=== PATIENT | female | born 1985 | race Caucasian/White ===

== ENCOUNTER 2022-08-31 09:49 | Outpatient (CLI) | payer OTHER, SELFPAY | END 2022-08-31 09:50 | disposition home or self-care (01) | PROVIDERS: PCP Family Medicine; Visit Provider Nurse Practitioner Family | DX: R10.9 Unspecified abdominal pain (principal) | CPT/HCPCS: 80053; 86140 ==

== ENCOUNTER 2022-09-11 07:58 | Outpatient (CLI) | payer OTHER, SELFPAY ==
--- NOTE | 2022-09-11 08:15 | CRLHL7_ITS ---
For Patients: As a result of the Century Cures Act, medical imaging exams and procedure reports are released immediately into your electronic medical record. You may view this report before your referring provider. If you have questions, please contact your health care provider. INDICATION: RUQ pain COMPARISON: none TECHNIQUE: Real time armstrong scale imaging and color Doppler analysis was performed of the right upper quadrant. FINDINGS: The patient`s liver is of normal size and has uniform echogenicity. There is a normal appearance of the hepatic IVC and proximal abdominal aorta. There is no evidence of ascites. The gallbladder is of normal size and there is a non mobile echogenic focus adherent to the nondependent gallbladder wall measuring 6 millimeters. Other smaller similar foci are present. The gallbladder wall measures 2 mm in thickness. The common bile duct is of normal size and measures 3 mm in diameter at the level of the loyd hepatis. The pancreas appears normal. There is no evidence of a stone or hydronephrosis within the right kidney. The right kidney measures 10.2 cm in length. IMPRESSION: Nondependent gallbladder wall hyperechoic adherent focus measuring 6 millimeters compatible with a polyp. Other smaller polyps are suspected elsewhere. Remainder normal. Dictated by Julius Rodarte MD @ 09/11/2022 8:50:13 AM (Electronically Signed)
== END 2022-09-11 07:59 | disposition home or self-care (01) ==
PROVIDERS: PCP Family Medicine; Visit Provider Nurse Practitioner Family
DX: R10.11 Right upper quadrant pain (principal)
CPT/HCPCS: 76705

== ENCOUNTER 2023-03-31 09:12 | Outpatient (CLI) | payer OTHER, SELFPAY | END 2023-03-31 09:13 | disposition home or self-care (01) | LOC: NFLDREF 04-02 11:15 | PROVIDERS: PCP Family Medicine; Referring Provider Family Medicine; Visit Provider Physician Assistant Medical | DX: R79.82 Elevated C-reactive protein (CRP) (principal); Z13.220 Encounter for screening for lipoid disorders; Z13.29 Encounter for screening for other suspected endocrine disorder | CPT/HCPCS: 80053; 80061; 84443; 86140 ==

== ENCOUNTER 2023-04-28 15:33 | Outpatient (CLI) | payer OTHER, SELFPAY ==
[2023-04-28 23:29] LABS: Chlamydia DNA Amplified* NOT DETECTED (No Detected); GC DNA Amplified* NOT DETECTED (No Detected)
== END 2023-04-28 15:34 | disposition home or self-care (01) ==
LOC: LKVREF 15:33
PROVIDERS: PCP Family Medicine; Visit Provider Physician Assistant Medical
DX: Z11.3 Encounter for screening for infections with a predominantly sexual mode of transmission (principal)
CPT/HCPCS: 87491; 87591

== ENCOUNTER 2023-06-25 13:23 | Outpatient (CLI) | payer OTHER, SELFPAY | END 2023-06-25 13:24 | disposition home or self-care (01) | LOC: NFLDREF 06-26 05:35 | PROVIDERS: PCP Family Medicine; Visit Provider Physician Assistant Medical | DX: R10.31 Right lower quadrant pain (principal); M54.50 Low back pain, unspecified | CPT/HCPCS: 87086 ==

== ENCOUNTER 2023-07-08 15:46 | Outpatient (CLI) | payer OTHER, SELFPAY ==
--- NOTE | 2023-07-08 16:00 | US_ITS ---
Patient: CHASE ALMANZA Facility:?[facility] RIS Patient ID:?[id number] Site Patient ID:?[id number]. Site :?1985 Study:?US-Pelvis PELVIS TA & TV-07/08/2023 4:24:51 PM Ordering Physician:?MAME GUILLORY Final Report: INDICATION: Right lower quadrant pain TECHNIQUE: Transabdominal and transvaginal scanning was performed. Transvaginal scanning was performed to optimally evaluate the endometrium and adnexa. Ovarian blood flow was evaluated with color-flow and pulsed Doppler. COMPARISON: None. FINDINGS: The uterus is normal in size. A scar is noted. The uterus measures 6.5 x 4.1 x 5.1 cm. No myometrial mass is evident. The endometrial stripe is normal in thickness at roughly 2 mm. The ovaries are normal in size and contain a number of follicles. The right ovary measures 3.2 x 3.1 x 2.7 cm and left 3.0 x 2.1 x 1.2 cm. Ovarian blood flow is demonstrated with color-flow and pulsed Doppler. No adnexal mass is evident. No free fluid is demonstrated. IMPRESSION: Negative pelvic ultrasound. Dictated by Curtis Vanegas MD @ 07/09/2023 3:09:15 PM Signed by:?Curtis Vanegas MD @07/09/2023 3:09:15 PM (Electronic Signature)
== END 2023-07-08 15:47 | disposition home or self-care (01) ==
LOC: US 15:46
PROVIDERS: PCP Family Medicine; Visit Provider Physician Assistant Medical
DX: R10.31 Right lower quadrant pain (principal)
CPT/HCPCS: 76830; 76856; 93976

== ENCOUNTER 2023-07-11 10:52 | Outpatient (CLI) | payer OTHER, SELFPAY ==
--- NOTE | 2023-07-11 11:00 | US_ITS ---
Patient: CHASE ALMANZA Facility:?[facility] RIS Patient ID:?[id number] Site Patient ID:?[id number]. Site :?1985 Study:?US-Abdomen limited-07/11/2023 11:26:57 AM Ordering Physician:Angelita Phillips Final Report: INDICATION: Cholesterolosis of the gallbladder. COMPARISON: Ultrasound of the right upper quadrant from 09/11/2022. TECHNIQUE: Ultrasound examination of the right upper quadrant was performed. FINDINGS: There is a stable hyperechoic 6 millimeter nonmobile nodule seen along the anterior wall of the gallbladder without shadowing, consistent with a gallbladder polyp. The gallbladder is otherwise normal in appearance with no sign of cholelithiasis or acute cholecystitis. A sonographic Funk sign is not present, with no pain over the gallbladder during ultrasound examination. The common bile duct is normal in caliber at 4 mm. The pancreatic head and body were examined, and these are normal in appearance. The abdominal aorta and visualized portions of the inferior vena cava are normal in appearance. The liver shows no sign of mass or contour abnormality, and there is no sign of ascites. There is normal antegrade color Doppler flow in the main portal vein. The right kidney is unremarkable. IMPRESSION: 1. Stable 6 millimeter polyp arising from the anterior wall of the gallbladder, of no clinical concern. 2. No sign of cholelithiasis or acute cholecystitis. No sign of biliary ductal dilatation. 3. No other abnormality seen in the right upper quadrant. Dictated by Lyle Meyer MD @ 07/11/2023 8:43:17 PM Signed by:?Lyle Meyer MD @07/11/2023 8:43:17 PM (Electronic Signature
== END 2023-07-11 10:53 | disposition home or self-care (01) ==
LOC: US 10:53
PROVIDERS: PCP Physician Assistant Medical; Visit Provider Surgery
DX: K82.4 Cholesterolosis of gallbladder (principal)
CPT/HCPCS: 76705

== ENCOUNTER 2023-12-05 11:07 | Outpatient (CLI) | payer OTHER, SELFPAY ==
[2023-12-09 07:02] LABS: HSV 1 Subtype by PCR Not Detected; HSV 2 Subtype by PCR Not Detected; Herpes Simplex Subtype Source Vesicle
== END 2023-12-05 11:08 | disposition home or self-care (01) ==
PROVIDERS: PCP Physician Assistant Medical; Visit Provider Registered Nurse
DX: N89.8 Other specified noninflammatory disorders of vagina (principal)
CPT/HCPCS: 86592; 87529

== ENCOUNTER 2024-04-28 09:54 | Emergency (ER) | payer OTHER, SELFPAY ==
--- OUTSIDE RECORDS SUMMARY | 2024-04-28 09:56 | XMS_ITS | Clinical Summary ---
Author Organization [facility] Address [address] [address] Phone Care Team Providers Care Office Support Specialist Name Role Phone Elsewhere, Pcp Primary Care Provider Unavailabl e Allergies No known active allergies Encounters Date Type Department Care Team Description 04/28/2024 12:55 AM SENIOR TEST ENGINEER - 04/28/2024 2:54 AM SENIOR TEST ENGINEER Emergency [facility] EMERGENCY DEPARTMENT [address] [place] [address] Sheldon Medina MD Spontaneous (Primary Dx); Vaginal bleeding affecting early Discharge Disposition: Home and/or Self Care 04/28/2024 Travel from Last 3 Months Social History Tobacco Use Types Packs/Day Years Used Date Smoking Tobacco: Never Assessed EH IP Custom IPV Answer Date Recorded Do you feel UNSAFE in any of your personal relationships with your family members or any other acquaintances? No 2024 Comments Yes Sex and Gender Information Value Date Recorded Sex Assigned at Not on file Legal Sex Female 12:53 PM CDT Gender Identity Not on file Sexual Orientation Not on file Obstetrics History Para Term AB IAB SAB Ectopic Molar Multiple Living Live Births 1 Date Outcome GA Total Labor Labor/2nd/3rd Weight Sex Type Anes PTL Mica A1 A5 Name Clin Current Last Filed Vital Signs Vital Sign Reading Time Taken Comments Blood Pressure 106/63 04/28/2024 2:30 AM SENIOR TEST ENGINEER Pulse 89 04/28/2024 2:30 AM SENIOR TEST ENGINEER Temperature 36.8 C (98.2 F) 04/28/2024 1:02 AM SENIOR TEST ENGINEER Respiratory Rate 16 04/28/2024 1:02 AM SENIOR TEST ENGINEER Oxygen Saturation 98% 04/28/2024 2:30 AM SENIOR TEST ENGINEER Inhaled Oxygen Concentration - - Weight 99.8 kg (220 lb) 04/28/2024 1:02 AM SENIOR TEST ENGINEER Height 162.6 cm (5' 4) 04/28/2024 1:02 AM SENIOR TEST ENGINEER Body Mass Index 37.76 04/28/2024 1:02 AM SENIOR TEST ENGINEER Plan of Treatment Health Maintenance Due Date Last Done Comments Cervical Cancer Screening 1985 Last pap w/ HPV Testing 1985 Last pap w/o HPV Testing 1985 Hepatitis B Vaccine (Standin g Order) (1 of 3 - 19+ 3-dose series) 01/28/2004 PERTUSSIS (Standing Order) 01/28/2004 TETANUS (Standing Order) 01/28/2004 COVID-19 Vaccine (2023-2 5 season) 2023 Influenza Vaccine Seasonal (Standing Order) (#1) 2023 HPV Vaccine (Standing Order) Aged Out No longer eligible based on patient's age to complete this topic Pneumococcal/PCV20 Vaccine: Pediatrics (2-5 yrs) and At-Risk Patients (6-49 yrs) (Standing Order) Aged Out No longer eligible b ased on patient's age to complete this topic Procedures Procedure Name Priority Date/Time Associated Diagnosis Comments URINALYSIS, REFLEX TO CULTURE STAT 04/28/2024 2:15 AM SENIOR TEST ENGINEER US OB 1ST TRIMESTER W TRANSVAGINAL STAT 04/28/2024 2:10 AM SENIOR TEST ENGINEER ABORH 2ND DRAW STAT 04/28/2024 1:24 AM SENIOR TEST ENGINEER HCG, SERUM QUANTITATIVE STAT 04/28/2024 1:15 AM SENIOR TEST ENGINEER BASIC METABOLIC PANEL STAT 04/28/2024 1:15 AM SENIOR TEST ENGINEER HEMOGRAM/DIFF STAT 04/28/2024 1:15 AM SENIOR TEST ENGINEER TYPE AND SCREEN STAT 04/28/2024 12:12 AM SENIOR TEST ENGINEER from Last 3 Months Results * (ABNORMAL) URINALYSIS, REFLEX TO CULTURE (04/28/2024 2:15 AM [facility]) UA Color Rosemary(A) Light Yellow, Yellow 04/28/2024 2:36 AM [facility] Urine Appearance Slightly Cloudy(A) Clear 04/28/2024 2:36 AM [facility] Urine Specific [place] 1.020 1.005 - 1.030 04/28/2024 2:36 AM [facility] Urine pH 7.0 5.0 - 8.0 04/28/2024 2:36 AM [facility] Urine Leukocyte Esterase Negative Negative 04/28/2024 2:36 AM [facility] Urine Nitrates Negative Negative 04/28/2024 2:36 AM [facility] Urine Protein 1+(A) Negative 04/28/2024 2:36 AM [facility] Urine Glucose Negative Negative 04/28/2024 2:36 AM [facility] Urine Ketones Negative Negative 04/28/2024 2:36 AM [facility] Urine Urobilinogen Normal Normal 04/28/2024 2:36 AM [facility] Urine Bilirubin Negative Negative 2:36 AM [facility] Urine Blood 3+(A) Negative 04/28/2024 2:36 AM [facility] Urine WBC's 0-5 0 - 5 /HPF 04/28/2024 2:36 AM [facility] Urine RBC's 30-200(A) 0 - 2 /HPF 04/28/2024 2:36 AM [facility] Urine Epithelial Cells Occasional( A) Negative /HPF 04/28/2024 2:36 AM [facility] Urine Bacteria Occasional( A) Negative /HPF 04/28/2024 2:36 AM [facility] Urine URINE SPECIMEN COLLECTION, CLEAN CATCH / Unknown Non-blood collection / Unknown 04/28/2024 2:15 AM [facility] 04/28/2024 2:17 AM SENIOR TEST ENGINEER us Sheldon Melissa Tony Sparks MD EC URINE ORDER MAMADOU Final Result [facility] [address] [place] [address], [facility] [phone] * US OB 1ST TRIMESTER W TRANSVAGINAL (04/28/2024 2:10 AM SENIOR TEST ENGINEER) Anatomical Region Laterality Modality Ultrasound 04/28/2024 1:29 AM SENIOR TEST ENGINEER Narrative 04/28/2024 2:30 AM SENIOR TEST ENGINEER EXAM: US OB 1ST TRIMESTER W TRANSVAGINAL LOCATION: [facility] DATE: 04/28/2024 INDICATION: Vaginal bleeding in early (approximately 10 weeks gestational age). COMPARISON: None. TECHNIQUE: Transabdominal scans were performed. Endovaginal ultrasound was performed to better visualize the embryo. FINDINGS: UTERUS: Uterus measures 9.7 x 5.9 x 5.8 cm. Heterogeneous thickened endometrium. Scattered areas of fluid within the endometrium. No pole or yolk sac seen. RIGHT OVARY: Right ovary measures 3.4 x 2.7 x 1.3 cm. Probable right corpus luteal cyst measuring 2.1 x 1.3 x 2.1 cm. No evidence for right ovarian torsion. LEFT OVARY: Left ovary measures 2.5 x 2.2 x 1.3 cm. No evidence for left ovarian torsion. No pelvic free fluid. IMPRESSION: No intrauterine seen. Heterogeneous thickened endometrium containing areas of fluid. Clinical correlation with quantitative hCG recommended. Probable right corpus luteal cyst. Bilateral ovaries contain flow without evidence for torsion. Electronically signed by: Alejandro Roca MD 04/28/2024 2:30 AM SENIOR TEST ENGINEER Procedure Note Alejandro Roca MD - 04/28/2024 EXAM: US OB 1ST TRIMESTER W TRANSVAGINAL LOCATION: [facility] DATE: 04/28/2024 INDICATION: Vaginal bleeding in early (approximately 10 weeks gestational age). COMPARISON: None. TECHNIQUE: Transabdominal scans were performed. Endovaginal ultrasoundwas performed to better visualize the embryo. FINDINGS: UTERUS: Uterus measures 9.7 x 5.9 x 5.8 cm. Heterogeneous thickenedendometrium. Scattered areas of fluid within the endometrium. No pole or yolk sacseen. RIGHT OVARY: Right ovary measures 3.4 x 2.7 x 1.3 cm. Probable rightcorpus luteal cyst measuring 2.1 x 1.3 x 2.1 cm. No evidence for right ovariantorsion. LEFT OVARY: Left ovary measures 2.5 x 2.2 x 1.3 cm. No evidence for leftovarian torsion. No pelvic free fluid. IMPRESSION: No intrauterine seen. Heterogeneous thickened endometriumcontaining areas of fluid. Clinical correlation with quantitative hCG recommended. Probable right corpus luteal cyst. Bilateral ovaries contain flow without evidence for torsion. Electronically signed by: Alejandro Roca MD 04/28/2024 2:30 AM SENIOR TEST ENGINEER Sheldon Sparks MD US ORDERABL ES Final Result * ABORH 2ND DRAW (04/28/2024 1:24 AM SENIOR TEST ENGINEER) RECKG A POSITIVE 04/28/2024 2:23 AM SENIOR TEST ENGINEER [facility] Blood BLOOD SPECIMEN / Unknown Venipuncture / Unknown 04/28/2024 1:24 AM SENIOR TEST ENGINEER 04/28/2024 1:32 AM SENIOR TEST ENGINEER Sheldon Sparks MD BLOOD BANK ORDERABLES Final Result [facility] [address] [phone] * (ABNORMAL) BASIC METABOLIC PANEL (04/28/2024 1:15 AM SENIOR TEST ENGINEER) Sodium 137 135 - 144 mmol/L 04/28/2024 1:53 AM SENIOR TEST ENGINEER [facility] Potassium 3.5 3.4 - 5.1 mmol/L 04/28/2024 1:53 AM SENIOR TEST ENGINEER [facility] Chloride 108(H) 98 - 107 mmol/L 04/28/2024 1:53 AM SENIOR TEST ENGINEER [facility] Carbon Dioxide 22 22 - 30 mmol/L 04/28/2024 1:53 AM SENIOR TEST ENGINEER [facility] Calcium 9.5 8.6 - 10.3 mg/dL 04/28/2024 1:53 AM [facility] Glucose 102(H) 74 - 100 mg/dL 04/28/2024 1:53 AM [facility] Blood Urea nitrogen 12 7 - 17 mg/dL 04/28/2024 1:53 AM [facility] Creatinine 0.76 0.52 - 1.04 mg/dL 04/28/2024 1:53 AM [facility] Anion Gap 7 5 - 15 mmol/L 04/28/2024 1:53 AM [facility] Glomerular Filtration Rate >60 >60 mL/min/1.7 3 m*2 04/28/2024 1:53 AM [facility] Comment:This calculation use s CKD-EPI 2020 equation; it has not been validated in women. Blood BLOOD SPECIMEN / Unknown Venipuncture / Unknown 04/28/2024 1:15 AM SENIOR TEST ENGINEER 04/28/2024 1:32 AM SENIOR TEST ENGINEER us Sheldon Sparks MD EC CHEMISTRY O RDERABLES Final Result Performing Organization Address City/State/[facility] Co de Phone Number [facility] [address] [place] [address] * HEMOGRAM/DIFFERENTIAL (04/28/2024 1:15 AM [facility]) WBC 5.5 4.0 - 11.0 10*3/uL 04/28/2024 1:45 AM [facility] RBC 4.27 3.80 - 5.20 10*6/uL 04/28/2024 1:45 AM [facility] HGB 12.9 12.0 - 16.0 g/dl 04/28/2024 1:45 AM [facility] HCT 38.6 35.0 - 47.0 % 04/28/2024 1:45 AM [facility] MCV 90.4 80 - 98 fL 04/28/2024 1:45 AM [facility] MCH 30.2 27.0 - 34.0 pg 04/28/2024 1:45 AM [facility] MCHC 33.4 32 - 36 g/dl 04/28/2024 1:45 AM [facility] PLT 204 150 - 420 10*3/uL 04/28/2024 1:45 AM [facility] Neutrophils Absolute 3.42 2.10 - 7.50 10*3/uL 04/28/2024 1:45 AM [facility] Lymphocytes Absolute 1.57 0.76 - 4.00 10*3/uL 04/28/2024 1:45 AM [facility] Monocytes Absolute 0.41 0.00 - 0.90 10*3/uL 04/28/2024 1:45 AM [facility] Eosinophils Absolute 0.09 0.04 - 0.54 10*3/uL 04/28/2024 1:45 AM [facility] Basophils Absolute 0.02 0.00 - 0.20 10*3/uL 04/28/2024 1:45 AM [facility] RDW-SD 43.4 36.5 - 46.3 fL 04/28/2024 1:45 AM [facility] RDW-CV 13.2 11.6 - 14.4 % 04/28/2024 1:45 AM [facility] Immature Granulocytes Absolute 0.01 0.00 - 0.10 10*3/uL 04/28/2024 1:45 AM [facility] Nucleated RBCs Absolute 0.00 0.00 - 0.00 10*3/uL 04/28/2024 1:45 AM [facility] Blood BLOOD SPECIMEN / Unknown Venipuncture / Unknown 04/28/2024 1:15 AM [facility] 04/28/2024 1:31 AM [facility] Sheldon Sparks MD EC HEMATOLOGY ORDERABLES Final Result [facility] [address] [phone] * (ABNORMAL) HCG, SERUM QUANTITATIVE (04/28/2024 1:15 AM SENIOR TEST ENGINEER) hCG, Serum Quantitative 8,370(H) <=25 mIU/mL 04/28/2024 2:12 AM [facility] Blood BLOOD SPECIMEN / Unknown Venipuncture / Unknown 04/28/2024 1:15 AM SENIOR TEST ENGINEER 04/28/2024 1:32 AM SENIOR TEST ENGINEER [facility] - 04/28/2024 2:12 AM SENIOR TEST ENGINEER Reference Ranges for Females: 0-1 weeks: 5-50 mIU/mL 1-2 weeks: 50-500 mIU/mL 2-3 weeks: 100-5,000 mIU/mL 3-4 weeks: 500-10,000 mIU/mL 4-5 weeks: 1,000-50,000 mIU/mL 5-6 weeks: 10,000-200,000 mIU/mL 6-8 weeks: 15,000-200,000 mIU/mL 2-3 months: 10,000-100,000 mIU/mL Specimens with biotin concentrations up to 13 ng/mL demonstrated a less than or equal to 10% change in results. Serum biotin concentrations >13 ng/mL may falsely decrease HCG results. us Sheldon Sparks MD EC CHEMISTRY O RDERABLES Final Result [facility] [address] [place], [place] [id number] [place] [address] * TYPE AND SCREEN (04/28/2024 12:12 AM SENIOR TEST ENGINEER) Antibody Screen NEGATIVE 04/28/2024 2:29 AM SENIOR TEST ENGINEER [facility] ABORH Type A POSITIVE 04/28/2024 2:29 AM [facility] Blood Bank Record New 04/28/2024 2:29 AM [facility] Comment:04/28/2024 Blood BLOOD SPECIMEN / Unknown Venipuncture / Unknown 04/28/2024 12:12 AM SENIOR TEST ENGINEER 04/28/2024 1:31 AM SENIOR TEST ENGINEER Sheldon Sparks MD EC BLOOD BANK ORDERABLES Final Result [facility] [address] [place] [address], [facility] [phone] from Last 3 Months Insurance [employer] Care Teams Office Support Specialist Relationship Specialty Start Date End Date Elsewhere, Pcp PCP - General 04/28/24
--- OUTSIDE RECORDS SUMMARY | 2024-04-28 09:56 | XMS_ITS | Encounter Summary ---
Author Organization [facility] Address [address] [address] Phone Care Team Providers Care Irrigator Valve Pipe Name Role Phone Elsewhere, Pcp Primary Care Provider Unavailabl e Encounter Details Date Type Department Care Team (Latest Contact Info) Description 04/28/2024 Travel Social History Tobacco Use Types Packs/Day Years [...] on file Sexual Orientation Not on file documented as of this encounter Functional Status * Patient's Vision Adequate to Safely Complete Daily Activities Answer Date of Assessment Author Yes 04/28/2024 1:05 AM Arminda Green RN * Patient's Memory Adequate to Safely Complete Daily Activities Answer Date of Assessment Author Yes 04/28/2024 1:05 AM Arminda Green RN documented as of this encounter Mental Status * Patient's Judgment Adequate to Safely Complete Daily Activities Answer Entry Date Author Yes 04/28/2024 1:05 AM Arminda Green RN documented in this encounter Plan of Treatment Not on file documented as of this encounter Visit Diagnoses Not on filedocumented in this encounter Care Teams Irrigator Valve Pipe Relationship Specialty Start Date End Date Elsewhere, Pcp PCP - General 04/28/24 documented as of this encounter
--- OUTSIDE RECORDS SUMMARY | 2024-04-28 09:56 | XMS_ITS | Encounter Summary ---
Author Organization [facility] Address [address] [address] Phone Care Team Providers Care Finishing Range Operator Name Role Phone Elsewhere, Pcp Primary Care Provider Unavailabl e Reason for Visit * Reason Comments Abdominal Pain Vaginal Bleed; Encounter Details Date Type Department Care Team (Late st Contact Info) Description 04/28/2024 12:55 AM JUNIOR ARCHITECT - 04/28/2024 2:54 AM JUNIOR ARCHITECT Emergency [facility] [address] [place] [phone] Sheldon Medina MD [address] [place], [place] [id number] Spontaneous (Primary Dx); Vaginal bleeding affecting early Discharge Disposition: Home and/or Self Care Social History Tobacco Use Types Packs/Day Years [...] on file documented as of this encounter Last Filed Vital Signs Vital Sign Reading Time Taken Comments Blood Pressure 106/63 04/28/2024 2:30 AM JUNIOR ARCHITECT Pulse 89 04/28/2024 2:30 AM JUNIOR ARCHITECT Temperature 36.8 C (98.2 F) 04/28/2024 1:02 AM JUNIOR ARCHITECT Respiratory Rate 16 04/28/2024 1:02 AM JUNIOR ARCHITECT Oxygen Saturation 98% 04/28/2024 2:30 AM JUNIOR ARCHITECT Inhaled Oxygen Concentration - - Weight 99.8 kg (220 lb) 04/28/2024 1:02 AM JUNIOR ARCHITECT Height 162.6 cm (5' 4) 04/28/2024 1:02 AM JUNIOR ARCHITECT Body Mass Index 37.76 04/28/2024 1:02 AM JUNIOR ARCHITECT documented in this encounter Functional Status * Patient's Vision Adequate to Safely Complete Daily Activities Answer Date of Assessment Author Yes 04/28/2024 1:05 AM JUNIOR ARCHITECT Arminda York RN * Patient's Memory Adequate to Safely Complete Daily Activities Answer Date of Assessment Author Yes 04/28/2024 1:05 AM JUNIOR ARCHITECT Arminda York RN documented as of this encounter Mental Status * Patient's Judgment Adequate to Safely Complete Daily Activities Answer Entry Date Author Yes 04/28/2024 1:05 AM JUNIOR ARCHITECT Arminda York RN documented in this encounter Discharge Instructions * Discharge Instructions* Sheldon Medina MD - 04/28/2024 2:33 AM JUNIOR ARCHITECT At this time it does appear you are having a miscarriage. The ultrasound shows no evidence of in the uterus but there are likely some products of conception that have not yet passed. Pleasesee attached instructions for further information on miscarriages and what to expect. Miscarriages are unfortunately quite common and most women go on to have normal healthy pregnancies in the future. You may expect further abdominal cramping and bleeding over the next few days. Call your Stores Despatch Hand provider first thing in the morning to arrange close follow-up within 2 days for recheck including repeat hormone testing and possible repeat imaging. You may take tylenol and ibuprofen as needed for pain control for abdominal pain or cramping. Return to the emergency department immediately if severe worsening bleeding especially if feeling lightheaded or short of breath, or severe worsening abdominal cramping, or any other acute concerns. OR ARCHITECT OR ARCHITECT * Attachments The following attachments cannot be sent through Care Everywhere. * Miscarriage, Spontaneous (Completed) (Spanish) documented in this encounter Discharge Disposition Disposition Code Departure Means Destination Comment s Home and/or Self Snf documented in this encounter ED Notes * Sheldon Medina MD - 04/28/2024 1:07 AM CST Patient: Lucinda Rey Means of Arrival: Car Chief Complaint: Abdominal Pain and Vaginal Bleed; History of Present Illness: HPI 39-year-old woman who is generally healthy presents for evaluation of vaginal spotting/bleeding as well as lower abdominal cramping rating to her back. She is currently approximately 10 weeks with last menstrual period on 02/19/2024 (putting her at 9 weeks 6 days). She is G2, P1. She notesscant brown discharge starting 2 days ago that then progressed to more bright red spotting today that worsened slightly tonight but without significant tissue or clots, but now with new lower abdominal cramping that is bilateral and does not lateralize more to the right or left, extending to her back that started over the last several hours and is worsening. Has not yet taken any medications inclu ding Tylenol for pain. She has not yet established with this , her BACK END DEVELOPER is at [facility] and she was due to have an ultrasound later this morning. No lightheadedness or shortness ofbreath. Review of Systems Please see HPI above for pertinent positives and negatives. No Known Allergies Prior to Admission Medication List No Medications Reported Past Medical History: No significant medical history Past Surgical History: No pertinent surgical history Family History: No pertinent family history Social History: Lives independently at home with family ( and toddler) Exam: Initial Vitals Most Recent Vitals Temp: 98.2 ??F (36.8 ??C) (04/28/24101) Temp: 98.2 ??F (36.8 ??C) (04/28/24101) Pulse: 97 (04/28/24101) Pulse: 89 (04/28/24 0230) Resp: 16 (04/28/24101) Resp: 16 (04/28/24101) BP: 113/80 (04/28/24101) BP: 106/63 (04/28/24 0230) SpO2: 99 % (04/28/24101) SpO2: 98 % (04/28/24229) Weight: 99.8 kg (220 lb) (04/28/24101) Physical Exam: Physical Exam Gen: Lying in bed, alert, nontoxic, no distress but appears uncomfortable HEENT: Cephalic and atraumatic, mucous membranes moist, conjunctiva clear CV: Rate and rhythm, appears warm and well-perfused Pulm: Normal respiratory effort, no audible wheeze or stridor Abd: Soft, nontender, nondistended Pelvic: Deferred Skin: No rash or other lesions MSK: No gross fomites or swelling in extremity Neuro: Alert and oriented x 4, no focal deficits Lab Results: Results for orders placed or performed during the hospital encounter of 04/28/24 URINALYSIS, REFLEX TO CULTURE Collection Time: 04/28/24 2:15 AM Specimen: Urine CVMS Result Value Ref Range UA Color Rosemary (A) Light Yellow, Yellow Urine Appearance Slightly Cloudy (A) Clear Urine Specific [place] 1.020 1.005 - 1.030 Urine pH 7.0 5.0 - 8.0 Urine Leukocyte Esterase Negative Negative Urine Nitrates Negative Negative Urine Protein 1+ (A) Negative Urine Glucose Negative Negative Urine Ketones Negative Negative Urine Urobilinogen Normal Normal Urine Bilirubin Negative Negative Urine Blood 3+ (A) Negative Urine WBC's 0-5 0 - 5 /HPF Urine RBC's 30-200 (A) 0 - 2 /HPF Urine Epithelial Cells Occasional (A) Negative /HPF Urine Bacteria Occasional (A) Negative /HPF ABORH 2ND DRAW Collection Time: 04/28/24 1:24 AM Result Value Ref Range RECKG A POSITIVE BASIC METABOLIC PANEL Collection Time: 04/28/24 1:15 AM Result Value Ref Range Sodium 137 135 - 144 mmol/L Potassium 3.5 3.4 - 5.1 mmol/L Chloride 108 (H) 98 - 107 mmol/L Carbon Dioxide 22 22 - 30 mmol/L Calcium 9.5 8.6 - 10.3 mg/dL Glucose 102 (H) 74 - 100 mg/dL Blood Urea nitrogen 12 7 - 17 mg/dL Creatinine 0.76 0.52 - 1.04 mg/dL Anion Gap 7 5 - 15 mmol/L Glomerular Filtration Rate >60 >60 mL/min/1.73 m*2 HEMOGRAM/DIFFERENTIAL Collection Time: 04/28/24 1:15 AM Result Value Ref Range WBC 5.5 4.0 - 11.0 10*3/uL RBC 4.27 3.80 - 5.20 10*6/uL HGB 12.9 12.0 - 16.0 g/dl HCT 38.6 35.0 - 47.0 % MCV 90.4 80 - 98 fL MCH 30.2 27.0 - 34.0 pg MCHC 33.4 32 - 36 g/dl PLT 204 150 - 420 10*3/uL Neutrophils Absolute 3.42 2.10 - 7.50 10*3/uL Lymphocytes Absolute 1.57 0.76 - 4.00 10*3/uL Monocytes Absolute 0.41 0.00 - 0.90 10*3/uL Eosinophils Absolute 0.09 0.04 - 0.54 10*3/uL Basophils Absolute 0.02 0.00 - 0.20 10*3/uL RDW-SD 43.4 36.5 - 46.3 fL RDW-CV 13.2 11.6 - 14.4 % Immature Granulocytes Absolute 0.01 0.00 - 0.10 10*3/uL Nucleated RBCs Absolute 0.00 0.00 - 0.00 10*3/uL HCG, SERUM QUANTITATIVE Collection Time: 04/28/24 1:15 AM Result Value Ref Range hCG, Serum Quantitative 8,370 (H) <=25 mIU/mL TYPE AND SCREEN Collection Time: 04/28/24 12:12 AM Result Value Ref Range Antibody Screen NEGATIVE ABORH Type A POSITIVE Blood Bank Record New Imaging Results: Imaging Results US OB 1ST TRIMESTER W TRANSVAGINAL (Final result) Result time 04/28/24 02:30:11 Final result by Alejandro Roca MD (04/28/24 02:30:11) Narrative: EXAM: US OB 1ST TRIMESTER W TRANSVAGINAL LOCATION: [facility] DATE: 04/28/2024 INDICATION: Vaginal bleeding in [...] by: Alejandro Roca MD 04/28/2024 2:30 AM [facility] [[email or web address]] Emergency Department Course: Medications acetaminophen (Tylenol) tablet 1,000 mg (1,000 mg Oral Given 04/28/24226) Procedures: Procedures Medical Decision Making ED Course as of 04/28/24 0756 FriApr 28, 2024 0151 CBC with normal white count, hemoglobin, and platelets [BW] 0154 BMP unremarkable, normal renal function and electrolytes [BW] 0213 Hcg 8,370 [BW] 0219 39-year-old woman G2, P1 currently at 9w6d gestational age (LMP 02/19/2024) who presents for evaluation of lower abdominal cramping and vaginal spotting/bleeding. She noted some brown discharge 2 days ago, then progressed to more significant spotting after urinating and with wiping yesterday and now new lower abdominal bilateral cramping extending the low back that started in the evening andworsens. She was due to have her initial OB intake with ultrasound this morning at [facility]. First trimester ultrasound pending but on my initial review, probable empty gestational sac in the uterus, no obvious ectopic foci with formal read by radiology to follow. Concern for spontaneous , less likely ectopic or threatened miscarriage. Patient believes her Rh status is positive but will confirm here and give RhoGAM if indicated. Will give Tylenol for discomfort. Anticipate ultimate discharge with close outpatient BACK END DEVELOPER follow-up [BW] 0226 Rh positive, RhoGAM not indicated [BW] 0230 US OB 1st trimester with transvaginal preliminary result: IMPRESSION: No intrauterine seen. Heterogeneous thickened endometrium containing areas of fluid. Clinical correlation with quantitative hCG recommended. Probable right corpus luteal cyst. Bilateral ovaries contain flow without evidence for torsion. [BW] 0239 Urinalysis notable for blood but no signs of UTI [BW] 0242 Patient updated on results and concern for spontaneous ; she is in agreement with planfor discharge with very close follow-up and strict return precautions. Pain improved on recheck, noworsening bleeding reported. Expectations provided. To call her OB team in the morning to arrange close follow-up and return if severe worsening symptoms [BW] ED Course User Index [BW] Sheldon Medina MD Assessment: (O03.9) Spontaneous (primary encounter diagnosis) (O20.9) Vaginal bleeding affecting early Plan: Discharge Prescriptions None Disposition: ED Disposition ED Disposition Discharge Condition Stable Comment Remember, your care today was on an emergency basis and treatment was not intended to be a substitute for ongoing medical care from your primary care physician. If you came to the Emergency Room for treatment of a wound, sore, or cut of some sort AND/OR if youhave had an injection, an IV treatment or blood drawn, please watch that area carefully for the following signs of infection and seek professional medical treatment immediately: Redness, pain, swelling, or drainage at the site, or you d evelop a fever greater than 100 degrees Fahrenheit measured orally. If you had a lab, xray, or other tests while in the ED please review with your primary doctor. Discharge Instructions At this time it does appear you are having a miscarriage. The ultrasound shows no evidence of in the uterus but there are likely some products of conception that have not yet passed. Please see attached instructions for further information on miscarriages and what to expect. Miscarriages are unfortunately quite common and most women go on to have normal healthy pregnancies in the future. You may expect further abdominal cramping and bleeding over the next few days. Call your Stores Despatch Hand provider first thing in the morning to arrange close follow-up within 2 days for recheck including repeat hormone testing and possible repeat imaging. You may take tylenol and ibuprofen as needed for pain control for abdominal pain or cramping. Return to the emergency department immediately if severe worsening bleeding especially if feeling lightheaded or short of breath, or severe worsening abdominal cramping, or any other acute concerns. Sheldon Medina MD 04/28/24 0759 OR ARCHITECT * Arminda Agarwal RN - 04/28/2024 12:55 AM CST Patient approximately 10 weeks and started developing some spotting and abdominal pain yesterday. Talked with her OB, who scheduled an ultrasound for this morning, but patient reports that the pain is keeping her awake and the spotting has worsened slightly. Has not taken any tylenol for pain. Patient is , denies these symptoms with her first . OBGYN at [facility]. OR ARCHITECT OR ARCHITECT documented in this encounter Plan of Treatment Pending Results Name Type Priority Associated Diagnoses Date /Time CULTURE, URINE Microbiology STAT 04/28/19 2:15 AM JUNIOR ARCHITECT Scheduled Orders Name Type Priority Associated Diagnoses Orde r Schedule CULTURE, URINE Microbiology ANA MARÍA One Time for 1 Occurrences starting 04/28/2024 until 04/28/2024 documented as of this encounter Procedures Procedure Name Priority Date/Time Associated Diagnosis Comments URINALYSIS, REFLEX TO CULTURE STAT 04/28/2024 2:15 AM JUNIOR ARCHITECT US OB 1ST TRIMESTER W TRANSVAGINAL STAT 04/28/2024 2:10 AM JUNIOR ARCHITECT ABORH 2ND DRAW STAT 04/28/2024 1:24 AM JUNIOR ARCHITECT BASIC METABOLIC PANEL STAT 04/28/2024 1:15 AM JUNIOR ARCHITECT HEMOGRAM/DIFF STAT 04/28/2024 1:15 AM JUNIOR ARCHITECT HCG, SERUM QUANTITATIVE STAT 04/28/2024 1:15 AM JUNIOR ARCHITECT TYPE AND SCREEN STAT 04/28/2024 12:12 AM JUNIOR ARCHITECT documented in this encounter Results * (ABNORMAL) URINALYSIS, REFLEX TO CULTURE (04/28/2024 2:15 AM JUNIOR ARCHITECT) UA Color Rosemary(A) Light Yellow, Yellow 04/28/2024 2:[address] [facility] Urine Appearance Slightly Cloudy(A) Clear 04/28/2024 2:[address] [facility] Urine Specific [place] 1.020 1.005 - 1.030 04/28/2024 2:[address] [facility] Urine pH 7.0 5.0 - 8.0 04/28/2024 2:[address] [facility] Urine Leukocyte Esterase Negative Negative 04/28/2024 2:[address] [facility] Urine Nitrates Negative Negative 04/28/2024 2:[address] [facility] Urine Protein 1+(A) Negative 04/28/2024 2:[address] [facility] Urine Glucose Negative Negative 04/28/2024 2:[address] [facility] Urine Ketones Negative Negative 04/28/2024 2:[address] [facility] Urine Urobilinogen Normal Normal 04/28/2024 2:[address] [facility] Urine Bilirubin Negative Negative 2:[address] [facility] Urine Blood 3+(A) Negative 04/28/2024 2:[address] [facility] Urine WBC's 0-5 0 - 5 /HPF 04/28/2024 2:[address] [facility] Urine RBC's 30-200(A) 0 - 2 /HPF 04/28/2024 2:[address] [facility] Urine Epithelial Cells Occasional( A) Negative /HPF 04/28/2024 2:[address] [facility] Urine Bacteria Occasional( A) Negative /HPF 04/28/2024 2:[address] [facility] Urine URINE SPECIMEN COLLECTION, CLEAN CATCH / Unknown Non-blood collection / Unknown 04/28/2024 2:15 AM JUNIOR ARCHITECT 04/28/2024 2:17 AM JUNIOR ARCHITECT Sheldon Sparks MD EC URINE ORDER MAMADOU Final Result [facility] [address] [place] [address], [facility] [phone] * US OB 1ST TRIMESTER W TRANSVAGINAL (04/28/2024 2:10 AM JUNIOR ARCHITECT) Anatomical Region Laterality Modality Ultrasound 04/28/2024 1:29 AM JUNIOR ARCHITECT Narrative 04/28/2024 2:30 AM JUNIOR ARCHITECT EXAM: US OB 1ST TRIMESTER W TRANSVAGINAL LOCATION: [facility] DATE: 04/28/2024 INDICATION: Vaginal bleeding in [...] by: Alejandro Roca MD 04/28/2024 2:30 AM JUNIOR ARCHITECT Procedure Note Alejandro Roca MD - 04/28/2024 EXAM: US OB 1ST TRIMESTER W TRANSVAGINAL LOCATION: [facility] DATE: 04/28/2024 INDICATION: Vaginal bleeding in [...] by: Alejandro Roca MD 04/28/2024 2:30 AM JUNIOR ARCHITECT Sheldon Sparks MD EC US ORDERABL ES Final Result * ABORH 2ND DRAW (04/28/2024 1:24 AM JUNIOR ARCHITECT) Pathologist [facility] RECKG A POSITIVE 04/28/2024 2:23 AM JUNIOR ARCHITECT [facility] Blood BLOOD SPECIMEN / Unknown Venipuncture / Unknown 04/28/2024 1:24 AM JUNIOR ARCHITECT 04/28/2024 1:32 AM JUNIOR ARCHITECT Sheldon Sparks MD EC BLOOD BANK ORDERABLES Final Result Performing Organization Address City/State/[facility] Co de Phone Number [facility] [address] [place] [address], [facility] [phone] * (ABNORMAL) HCG, SERUM QUANTITATIVE (04/28/2024 1:15 AM JUNIOR ARCHITECT) Pathologist [facility] hCG, Serum Quantitative 8,370(H) <=25 mIU/mL 04/28/2024 2:12 AM JUNIOR ARCHITECT [facility] Blood BLOOD SPECIMEN / Unknown Venipuncture / Unknown 04/28/2024 1:15 AM JUNIOR ARCHITECT 04/28/2024 1:32 AM JUNIOR ARCHITECT Narrative [facility] - 04/28/2024 2:12 AM JUNIOR ARCHITECT Reference Ranges for Females: 0-1 weeks: 5-50 [...] MD EC CHEMISTRY O RDERABLES Final Result [facility] [address] [phone] * (ABNORMAL) BASIC METABOLIC PANEL (04/28/2024 1:15 AM JUNIOR ARCHITECT) Sodium 137 135 - 144 mmol/L 04/28/2024 1:[address] [facility] Potassium 3.5 3.4 - 5.1 mmol/L 04/28/2024 1:[address] [facility] Chloride 108(H) 98 - 107 mmol/L 04/28/2024 1:[address] [facility] Carbon Dioxide 22 22 - 30 mmol/L 04/28/2024 1:[address] [facility] Calcium 9.5 8.6 - 10.3 mg/dL 04/28/2024 1:[address] [facility] Glucose 102(H) 74 - 100 mg/dL 04/28/2024 1:[address] [facility] Blood Urea nitrogen 12 7 - 17 mg/dL 04/28/2024 1:[address] [facility] Creatinine 0.76 0.52 - 1.04 mg/dL 04/28/2024 1:[address] [facility] Anion Gap 7 5 - 15 mmol/L 04/28/2024 1:[address] [facility] Glomerular Filtration Rate >60 >60 mL/min/1.7 3 m*2 04/28/2024 1:[address] [facility] Comment:This calculation use s CKD-EPI 2020 equation; it has not been validated in women. Blood BLOOD SPECIMEN / Unknown Venipuncture / Unknown 04/28/2024 1:15 AM JUNIOR ARCHITECT 04/28/2024 1:32 AM JUNIOR ARCHITECT Sheldon Sparks MD EC CHEMISTRY O RDERABLES Final Result [facility] [address] [phone] * HEMOGRAM/DIFFERENTIAL (04/28/2024 1:15 AM [facility] [email or web address]]) WBC 5.5 4.0 - 11.0 10*3/uL 04/28/2024 1:[address] [facility] RBC 4.27 3.80 - 5.20 10*6/uL 04/28/2024 1:[address] [facility] HGB 12.9 12.0 - 16.0 g/dl 04/28/2024 1:[address] [facility] HCT 38.6 35.0 - 47.0 % 04/28/2024 1:[address] [facility] MCV 90.4 80 - 98 fL 04/28/2024 1:[address] [facility] MCH 30.2 27.0 - 34.0 pg 04/28/2024 1:[address] [facility] MCHC 33.4 32 - 36 g/dl 04/28/2024 1:[address] [facility] PLT 204 150 - 420 10*3/uL 04/28/2024 1:[address] [facility] Neutrophils Absolute 3.42 2.10 - 7.50 10*3/uL 04/28/2024 1:[address] [facility] Lymphocytes Absolute 1.57 0.76 - 4.00 10*3/uL 04/28/2024 1:[address] [facility] Monocytes Absolute 0.41 0.00 - 0.90 10*3/uL 04/28/2024 1:[address] [facility] Eosinophils Absolute 0.09 0.04 - 0.54 10*3/uL 04/28/2024 1:[address] [facility] Basophils Absolute 0.02 0.00 - 0.20 10*3/uL 04/28/2024 1:[address] [facility] RDW-SD 43.4 36.5 - 46.3 fL 04/28/2024 1:[address] [facility] RDW-CV 13.2 11.6 - 14.4 % 04/28/2024 1:[address] [facility] Immature Granulocytes Absolute 0.01 0.00 - 0.10 10*3/uL 04/28/2024 1:[address] [facility] Nucleated RBCs Absolute 0.00 0.00 - 0.00 10*3/uL 04/28/2024 1:[address] [facility] Blood BLOOD SPECIMEN / Unknown Venipuncture / Unknown 04/28/2024 1:15 AM [facility] [[email or web address]] 04/28/2024 1:31 AM [facility] [[email or web address]] Sheldon Sparks MD EC HEMATOLOGY ORDERABLES Final Result Performing Organization Address City/State/[facility] Co de Phone Number [facility] [address] [place] [address] * TYPE AND SCREEN (04/28/2024 12:12 AM JUNIOR ARCHITECT) Antibody Screen NEGATIVE 04/28/2024 2:[address] [facility] ABORH Type A POSITIVE 04/28/2024 2:[address] [facility] Blood Bank Record New 04/28/2024 2:[address] [facility] Comment:04/28/2024 dh Blood BLOOD SPECIMEN / Unknown Venipuncture / Unknown 04/28/2024 12:12 AM JUNIOR ARCHITECT 04/28/2024 1:31 AM JUNIOR ARCHITECT us Sheldon Sparks MD EC BLOOD BANK ORDERABLES Final Result [facility] [address] [place] [address], [facility] [phone] documented in this encounter Visit Diagnoses Diagnosis Spontaneous - Primary Unspecified spontaneous without mention of complication Vaginal bleeding affecting early documented in this encounter Administered Medications Inactive Administered Medications Medication Order MAR Action Action Date Dose Rate Site acetaminophen (Tylenol) tablet 1,000 mg 1,000 mg, Oral, ONCE, 1 dose, On Fri04/28/24 at 0230 Given 04/28/2024 2:27 AM JUNIOR ARCHITECT 1,000 mg documented in this encounter Active and Recently Administered Medications Times are shown in JUNIOR ARCHITECT. Scheduled Medication Order 04/26/2024 04/27/2024 04/28/2024 acetaminophen (Tylenol) tablet 1,000 mg (COMPLETED) 1,000 mg, Oral, ONCE, 1 dose, On Fri04/28/24 at 0230 0227 (Given - Provid er: Arminda Agarwal RN) documented in this encounter Orders Medications Ordered That Timmy ht Not Have Been Administered Count Last Ordered Date First Ordered Date acetaminophen (Tylenol) tablet 1,000 mg 1 0 04/28/2024 documented in this encounter Care Teams Finishing Range Operator Relationship Specialty Start Date End Date Elsewhere, Pcp PCP - General 04/28/24 documented as of this encounter
[2024-04-28 09:57] VITALS: BP 130/70; PULSE 79; RESP 18; TEMP 36.5; O2SAT 100; BMI 37.8
--- OUTSIDE RECORDS SUMMARY | 2024-04-28 10:17 | XMS_ITS | Encounter Summary ---
Author Organization [facility] Address [address] [address] Phone Care Team Providers Care Cruise Consultant Name Role Phone Elsewhere, Pcp Primary Care Provider Unavailabl e Reason for Visit * Reason Comments Abdominal Pain Vaginal Bleed; Encounter Details Date Type Department Care Team (Late st Contact Info) Description 04/28/2024 12:55 AM DIESEL POWERPLANT MECHANIC - 04/28/2024 2:54 AM DIESEL POWERPLANT MECHANIC Emergency [facility] EMERGENCY DEPARTMENT [address] [place] [phone] Sheldon Medina MD [address] [place], [place] [address] Spontaneous (Primary Dx); Vaginal bleeding affecting early [...] Comments Blood Pressure 106/63 04/28/2024 2:30 AM DIESEL POWERPLANT MECHANIC Pulse 89 04/28/2024 2:30 AM DIESEL POWERPLANT MECHANIC Temperature 36.8 C (98.2 F) 04/28/2024 1:02 AM DIESEL POWERPLANT MECHANIC Respiratory Rate 16 04/28/2024 1:02 AM DIESEL POWERPLANT MECHANIC Oxygen Saturation 98% 04/28/2024 2:30 AM DIESEL POWERPLANT MECHANIC Inhaled Oxygen Concentration - - Weight 99.8 kg (220 lb) 04/28/2024 1:02 AM DIESEL POWERPLANT MECHANIC Height 162.6 cm (5' 4) 04/28/2024 1:02 AM DIESEL POWERPLANT MECHANIC Body Mass Index 37.76 04/28/2024 1:02 AM DIESEL POWERPLANT MECHANIC documented in this encounter Functional Status * Patient's Vision Adequate to Safely Complete Daily Activities Answer Date of Assessment Author Yes 04/28/2024 1:05 AM DIESEL POWERPLANT MECHANIC Arminda York RN * Patient's Memory Adequate to Safely Complete Daily Activities Answer Date of Assessment Author Yes 04/28/2024 1:05 AM DIESEL POWERPLANT MECHANIC Arminda York RN documented as of this encounter Mental Status * Patient's Judgment Adequate to Safely Complete Daily Activities Answer Entry Date Author Yes 04/28/2024 1:05 AM DIESEL POWERPLANT MECHANIC Arminda York RN documented in this encounter Discharge Instructions * Discharge Instructions* Sheldon Medina MD - 04/28/2024 2:33 AM DIESEL POWERPLANT MECHANIC At this time it does appear you [...] over the next few days. Call your Motor And Generator Brush Maker provider first thing in the morning to [...] abdominal cramping, or any other acute concerns. EL POWERPLANT MECHANIC EL POWERPLANT MECHANIC * Attachments The following attachments cannot be sent through Care Everywhere. * Miscarriage, Spontaneous (Completed) (Vincentian) documented in this encounter Discharge Disposition Disposition Code Departure Means Destination Comment s Home and/or Self Penitentiary documented in this encounter ED Notes * [...] not yet established with this , her SURVEY ASSOCIATE is at [facility] and she was due to have an [...] Appearance Slightly Cloudy (A) Clear Urine Specific [place] 1.020 1.005 - 1.030 Urine pH 7.0 [...] US OB 1ST TRIMESTER W TRANSVAGINAL LOCATION: [facility] DATE: 04/28/2024 INDICATION: Vaginal bleeding in early [...] by: Alejandro Roca MD 04/28/2024 2:30 AM [facility] Emergency Department Course: Medications acetaminophen (Tylenol) tablet [...] OB intake with ultrasound this morning at [facility]. First trimester ultrasound pending but on my [...] discomfort. Anticipate ultimate discharge with close outpatient SURVEY ASSOCIATE follow-up [BW] 0226 Rh positive, RhoGAM not [...] over the next few days. Call your Motor And Generator Brush Maker provider first thing in the morning to [...] acute concerns. Sheldon Medina MD 04/28/24 0759 EL POWERPLANT MECHANIC * Arminda Agarwal RN - 04/28/2024 12:55 [...] symptoms with her first . OBGYN at [facility]. EL POWERPLANT MECHANIC EL POWERPLANT MECHANIC documented in this encounter Plan of Treatment Pending Results Name Type Priority Associated Diagnoses Date /Time CULTURE, URINE Microbiology STAT 04/28/19 2:15 AM DIESEL POWERPLANT MECHANIC Scheduled Orders Name Type Priority Associated Diagnoses Orde r Schedule CULTURE, URINE Microbiology ANA MARÍA One Time for 1 Occurrences starting 04/28/2024 until 04/28/2024 documented as of this encounter Procedures Procedure Name Priority Date/Time Associated Diagnosis Comments URINALYSIS, REFLEX TO CULTURE STAT 04/28/2024 2:15 AM DIESEL POWERPLANT MECHANIC US OB 1ST TRIMESTER W TRANSVAGINAL STAT 04/28/2024 2:10 AM DIESEL POWERPLANT MECHANIC ABORH 2ND DRAW STAT 04/28/2024 1:24 AM DIESEL POWERPLANT MECHANIC BASIC METABOLIC PANEL STAT 04/28/2024 1:15 AM DIESEL POWERPLANT MECHANIC HEMOGRAM/DIFF STAT 04/28/2024 1:15 AM DIESEL POWERPLANT MECHANIC HCG, SERUM QUANTITATIVE STAT 04/28/2024 1:15 AM DIESEL POWERPLANT MECHANIC TYPE AND SCREEN STAT 04/28/2024 12:12 AM DIESEL POWERPLANT MECHANIC documented in this encounter Results * (ABNORMAL) URINALYSIS, REFLEX TO CULTURE (04/28/2024 2:15 AM DIESEL POWERPLANT MECHANIC) UA Color Rosemary(A) Light Yellow, Yellow 04/28/2024 2:36 AM [facility] Urine Appearance Slightly Cloudy(A) Clear 04/28/2024 2:36 AM [facility] Urine Specific [place] 1.020 1.005 - 1.030 04/28/2024 2:36 AM [facility] Urine pH 7.0 5.0 - 8.0 04/28/2024 2:36 AM [facility] Urine Leukocyte Esterase Negative Negative 04/28/2024 2:36 AM [facility] Urine Nitrates Negative Negative 04/28/2024 2:36 AM [facility] Urine Protein 1+(A) Negative 04/28/2024 2:36 AM [facility] Urine Glucose Negative Negative 04/28/2024 2:36 AM [facility] Urine Ketones Negative Negative 04/28/2024 2:36 AM [facility] Urine Urobilinogen Normal Normal 04/28/2024 2:36 AM [facility] Urine Bilirubin Negative Negative 2:36 AM [facility] Urine Blood 3+(A) Negative 04/28/2024 2:36 AM [facility] Urine WBC's 0-5 0 - 5 /HPF 04/28/2024 2:36 AM [facility] Urine RBC's 30-200(A) 0 - 2 /HPF 04/28/2024 2:36 AM [facility] Urine Epithelial Cells Occasional( A) Negative /HPF 04/28/2024 2:36 AM [facility] Urine Bacteria Occasional( A) Negative /HPF 04/28/2024 2:36 AM [facility] Urine URINE SPECIMEN COLLECTION, CLEAN CATCH / Unknown Non-blood collection / Unknown 04/28/2024 2:15 AM DIESEL POWERPLANT MECHANIC 04/28/2024 2:17 AM DIESEL POWERPLANT MECHANIC Sheldon Sparks MD EC URINE ORDER MAMADOU Final Result [facility] [address] [place] [address], [facility] [phone] * US OB 1ST TRIMESTER W TRANSVAGINAL (04/28/2024 2:10 AM DIESEL POWERPLANT MECHANIC) Anatomical Region Laterality Modality Ultrasound 04/28/2024 1:29 AM DIESEL POWERPLANT MECHANIC Narrative 04/28/2024 2:30 AM DIESEL POWERPLANT MECHANIC EXAM: US OB 1ST TRIMESTER W TRANSVAGINAL LOCATION: [facility] DATE: 04/28/2024 INDICATION: Vaginal bleeding in early [...] by: Alejandro Roca MD 04/28/2024 2:30 AM DIESEL POWERPLANT MECHANIC Procedure Note Alejandro Roca MD - 04/28/2024 EXAM: US OB 1ST TRIMESTER W TRANSVAGINAL LOCATION: [facility] DATE: 04/28/2024 INDICATION: Vaginal bleeding in early [...] by: Alejandro Roca MD 04/28/2024 2:30 AM DIESEL POWERPLANT MECHANIC Sheldon Sparks MD EC US ORDERABL ES Final Result * ABORH 2ND DRAW (04/28/2024 1:24 AM DIESEL POWERPLANT MECHANIC) Pathologist [facility] RECKG A POSITIVE 04/28/2024 2:23 AM DIESEL POWERPLANT MECHANIC [facility] BLOOD B[facility] Blood BLOOD SPECIMEN / Unknown Venipuncture / Unknown 04/28/2024 1:24 AM DIESEL POWERPLANT MECHANIC 04/28/2024 1:32 AM DIESEL POWERPLANT MECHANIC Sheldon Sparks MD EC BLOOD BANK ORDERABLES Final Result Performing Organization Address City/State/[facility] Co de Phone Number [facility] BLOOD B[facility] [address] [place] [address], [facility] [phone] * (ABNORMAL) HCG, SERUM QUANTITATIVE (04/28/2024 1:15 AM DIESEL POWERPLANT MECHANIC) Pathologist [facility] hCG, Serum Quantitative 8,370(H) <=25 mIU/mL 04/28/2024 2:12 AM DIESEL POWERPLANT MECHANIC [facility] Blood BLOOD SPECIMEN / Unknown Venipuncture / Unknown 04/28/2024 1:15 AM DIESEL POWERPLANT MECHANIC 04/28/2024 1:32 AM DIESEL POWERPLANT MECHANIC Narrative [facility] - 04/28/2024 2:12 AM DIESEL POWERPLANT MECHANIC Reference Ranges for Females: 0-1 weeks: 5-50 [...] MD EC CHEMISTRY O RDERABLES Final Result [facility] [address] [phone] * (ABNORMAL) BASIC METABOLIC PANEL (04/28/2024 1:15 AM DIESEL POWERPLANT MECHANIC) Sodium 137 135 - 144 mmol/L 04/28/2024 1:53 AM [facility] Potassium 3.5 3.4 - 5.1 mmol/L 04/28/2024 1:53 AM [facility] Chloride 108(H) 98 - 107 mmol/L 04/28/2024 1:53 AM [facility] Carbon Dioxide 22 22 - 30 mmol/L 04/28/2024 1:53 AM [facility] Calcium 9.5 8.6 - 10.3 mg/dL 04/28/2024 1:53 AM [facility] Glucose 102(H) 74 - 100 mg/dL 04/28/2024 1:53 AM [facility] Blood Urea nitrogen 12 7 - 17 mg/dL 04/28/2024 1:53 AM [facility] Creatinine 0.76 0.52 - 1.04 mg/dL 04/28/2024 1:53 AM [facility] Anion Gap 7 5 - 15 mmol/L 04/28/2024 1:53 AM [facility] Glomerular Filtration Rate >60 >60 mL/min/1.7 3 m*2 04/28/2024 1:53 AM [facility] Comment:This calculation use s CKD-EPI 2020 equation; it has not been validated in women. Blood BLOOD SPECIMEN / Unknown Venipuncture / Unknown 04/28/2024 1:15 AM DIESEL POWERPLANT MECHANIC 04/28/2024 1:32 AM DIESEL POWERPLANT MECHANIC Sheldon Sparks MD EC CHEMISTRY O RDERABLES Final Result [facility] [address] [phone] * HEMOGRAM/DIFFERENTIAL (04/28/2024 1:15 AM [facility]) WBC 5.5 4.0 - 11.0 10*3/uL 04/28/2024 1:45 AM [facility] RBC 4.27 3.80 - 5.20 10*6/uL 04/28/2024 1:45 AM [facility] HGB 12.9 12.0 - 16.0 g/dl 04/28/2024 1:45 AM [facility] HCT 38.6 35.0 - 47.0 % 04/28/2024 1:45 AM [facility] MCV 90.4 80 - 98 fL 04/28/2024 1:45 AM [facility] MCH 30.2 27.0 - 34.0 pg 04/28/2024 1:45 AM [facility] MCHC 33.4 32 - 36 g/dl 04/28/2024 1:45 AM [facility] PLT 204 150 - 420 10*3/uL 04/28/2024 1:45 AM [facility] Neutrophils Absolute 3.42 2.10 - 7.50 10*3/uL 04/28/2024 1:45 AM [facility] Lymphocytes Absolute 1.57 0.76 - 4.00 10*3/uL 04/28/2024 1:45 AM [facility] Monocytes Absolute 0.41 0.00 - 0.90 10*3/uL 04/28/2024 1:45 AM [facility] Eosinophils Absolute 0.09 0.04 - 0.54 10*3/uL 04/28/2024 1:45 AM [facility] Basophils Absolute 0.02 0.00 - 0.20 10*3/uL 04/28/2024 1:45 AM [facility] RDW-SD 43.4 36.5 - 46.3 fL 04/28/2024 1:45 AM [facility] RDW-CV 13.2 11.6 - 14.4 % 04/28/2024 1:45 AM [facility] Immature Granulocytes Absolute 0.01 0.00 - 0.10 10*3/uL 04/28/2024 1:45 AM [facility] Nucleated RBCs Absolute 0.00 0.00 - 0.00 10*3/uL 04/28/2024 1:45 AM [facility] Blood BLOOD SPECIMEN / Unknown Venipuncture / Unknown 04/28/2024 1:15 AM [facility] 04/28/2024 1:31 AM [facility] Sheldon Sparks MD EC HEMATOLOGY ORDERABLES Final Result Performing Organization Address City/State/[facility] Co de Phone Number [facility] [address] [place] [address] * TYPE AND SCREEN (04/28/2024 12:12 AM DIESEL POWERPLANT MECHANIC) Antibody Screen NEGATIVE 04/28/2024 2:29 AM [facility] ABORH Type A POSITIVE 04/28/2024 2:29 AM [facility] Blood Bank Record New 04/28/2024 2:29 AM [facility] Comment:04/28/2024 dh Blood BLOOD SPECIMEN / Unknown Venipuncture / Unknown 04/28/2024 12:12 AM DIESEL POWERPLANT MECHANIC 04/28/2024 1:31 AM DIESEL POWERPLANT MECHANIC us Sheldon Sparks MD EC BLOOD BANK ORDERABLES Final Result [facility] [address] [place] [address], [facility] [phone] documented in this encounter Visit Diagnoses Diagnosis Spontaneous - Primary Unspecified spontaneous without mention of complication Vaginal bleeding affecting early documented in this encounter Administered Medications Inactive Administered Medications Medication Order MAR Action Action Date Dose Rate Site acetaminophen (Tylenol) tablet 1,000 mg 1,000 mg, Oral, ONCE, 1 dose, On Fri04/28/24 at 0230 Given 04/28/2024 2:27 AM DIESEL POWERPLANT MECHANIC 1,000 mg documented in this encounter Active and Recently Administered Medications Times are shown in DIESEL POWERPLANT MECHANIC. Scheduled Medication Order 04/26/2024 04/27/2024 04/28/2024 acetaminophen [...] 04/28/2024 documented in this encounter Care Teams Cruise Consultant Relationship Specialty Start Date End Date Elsewhere, Pcp PCP - General 04/28/24 documented as of this encounter
--- OUTSIDE RECORDS SUMMARY | 2024-04-28 10:17 | XMS_ITS | Clinical Summary ---
Author Organization [facility] [employer] [facility] Address [address] [address] Phone Care Team Providers Care Offshore Wind Turbine Technician Name Role Phone Elsewhere, Pcp Primary Care Provider Unavailabl e Allergies No known active allergies Encounters Date Type Department Care Team Description 04/28/2024 12:55 AM CHAIR SPRING ASSEMBLER - 04/28/2024 2:54 AM CHAIR SPRING ASSEMBLER Emergency [facility] EMERGENCY DEPARTMENT [address] [place] [address] Sheldon Medina MD Spontaneous (Primary [...] Comments Blood Pressure 106/63 04/28/2024 2:30 AM CHAIR SPRING ASSEMBLER Pulse 89 04/28/2024 2:30 AM CHAIR SPRING ASSEMBLER Temperature 36.8 C (98.2 F) 04/28/2024 1:02 AM CHAIR SPRING ASSEMBLER Respiratory Rate 16 04/28/2024 1:02 AM CHAIR SPRING ASSEMBLER Oxygen Saturation 98% 04/28/2024 2:30 AM CHAIR SPRING ASSEMBLER Inhaled Oxygen Concentration - - Weight 99.8 kg (220 lb) 04/28/2024 1:02 AM CHAIR SPRING ASSEMBLER Height 162.6 cm (5' 4) 04/28/2024 1:02 AM CHAIR SPRING ASSEMBLER Body Mass Index 37.76 04/28/2024 1:02 AM CHAIR SPRING ASSEMBLER Plan of Treatment Health Maintenance Due Date [...] REFLEX TO CULTURE STAT 04/28/2024 2:15 AM CHAIR SPRING ASSEMBLER US OB 1ST TRIMESTER W TRANSVAGINAL STAT 04/28/2024 2:10 AM CHAIR SPRING ASSEMBLER ABORH 2ND DRAW STAT 04/28/2024 1:24 AM CHAIR SPRING ASSEMBLER HCG, SERUM QUANTITATIVE STAT 04/28/2024 1:15 AM CHAIR SPRING ASSEMBLER BASIC METABOLIC PANEL STAT 04/28/2024 1:15 AM CHAIR SPRING ASSEMBLER HEMOGRAM/DIFF STAT 04/28/2024 1:15 AM CHAIR SPRING ASSEMBLER TYPE AND SCREEN STAT 04/28/2024 12:12 AM CHAIR SPRING ASSEMBLER from Last 3 Months Results * (ABNORMAL) URINALYSIS, REFLEX TO CULTURE (04/28/2024 2:15 AM [facility]) UA Color Rosemary(A) Light Yellow, Yellow 04/28/2024 2:36 AM [facility] Urine Appearance Slightly Cloudy(A) Clear 04/28/2024 2:36 AM [facility] Urine Specific [place] 1.020 1.005 - 1.030 04/28/2024 2:36 AM [facility] Urine pH 7.0 5.0 - 8.0 04/28/2024 2:36 AM [facility] Urine Leukocyte Esterase Negative Negative 04/28/2024 2:36 AM [facility] Urine Nitrates Negative Negative 04/28/2024 2:36 AM [facility] Urine Protein 1+(A) Negative 04/28/2024 2:36 AM [facility] Urine Glucose Negative Negative 04/28/2024 2:36 AM [facility] Urine Ketones Negative Negative 04/28/2024 2:36 AM [facility] Urine Urobilinogen Normal Normal 04/28/2024 2:36 AM [facility] Urine Bilirubin Negative Negative 2:36 AM [facility] Urine Blood 3+(A) Negative 04/28/2024 2:36 AM [facility] Urine WBC's 0-5 0 - 5 /HPF 04/28/2024 2:36 AM [facility] Urine RBC's 30-200(A) 0 - 2 /HPF 04/28/2024 2:36 AM [facility] Urine Epithelial Cells Occasional( A) Negative /HPF 04/28/2024 2:36 AM [facility] Urine Bacteria Occasional( A) Negative /HPF 04/28/2024 2:36 AM [facility] Urine URINE SPECIMEN COLLECTION, CLEAN CATCH / Unknown Non-blood collection / Unknown 04/28/2024 2:15 AM [facility] 04/28/2024 2:17 AM CHAIR SPRING ASSEMBLER us Sheldon Melissa Tony Sparks MD EC URINE ORDER MAMADOU Final Result [facility] [address] [place] [address], [facility] [phone] * US OB 1ST TRIMESTER W TRANSVAGINAL (04/28/2024 2:10 AM CHAIR SPRING ASSEMBLER) Anatomical Region Laterality Modality Ultrasound 04/28/2024 1:29 AM CHAIR SPRING ASSEMBLER Narrative 04/28/2024 2:30 AM CHAIR SPRING ASSEMBLER EXAM: US OB 1ST TRIMESTER W TRANSVAGINAL LOCATION: [facility] DATE: 04/28/2024 INDICATION: Vaginal bleeding [...] by: Alejandro Roca MD 04/28/2024 2:30 AM CHAIR SPRING ASSEMBLER Procedure Note Alejandro Roca MD - 04/28/2024 EXAM: US OB 1ST TRIMESTER W TRANSVAGINAL LOCATION: [facility] DATE: 04/28/2024 INDICATION: Vaginal bleeding [...] by: Alejandro Roca MD 04/28/2024 2:30 AM CHAIR SPRING ASSEMBLER Sheldon Sparks MD US ORDERABL ES Final Result * ABORH 2ND DRAW (04/28/2024 1:24 AM CHAIR SPRING ASSEMBLER) RECKG A POSITIVE 04/28/2024 2:23 AM CHAIR SPRING ASSEMBLER [facility] Blood BLOOD SPECIMEN / Unknown Venipuncture / Unknown 04/28/2024 1:24 AM CHAIR SPRING ASSEMBLER 04/28/2024 1:32 AM CHAIR SPRING ASSEMBLER Sheldon Sparks MD BLOOD BANK ORDERABLES Final Result [facility] [address] [phone] * (ABNORMAL) BASIC METABOLIC PANEL (04/28/2024 1:15 AM CHAIR SPRING ASSEMBLER) Sodium 137 135 - 144 mmol/L 04/28/2024 1:53 AM CHAIR SPRING ASSEMBLER [facility] Potassium 3.5 3.4 - 5.1 mmol/L 04/28/2024 1:53 AM CHAIR SPRING ASSEMBLER [facility] Chloride 108(H) 98 - 107 mmol/L 04/28/2024 1:53 AM CHAIR SPRING ASSEMBLER [facility] Carbon Dioxide 22 22 - 30 mmol/L 04/28/2024 1:53 AM CHAIR SPRING ASSEMBLER [facility] Calcium 9.5 8.6 - 10.3 mg/dL 04/28/2024 1:53 AM [facility] Glucose 102(H) 74 - 100 mg/dL 04/28/2024 1:53 AM [facility] Blood Urea nitrogen 12 7 - 17 mg/dL 04/28/2024 1:53 AM [facility] Creatinine 0.76 0.52 - 1.04 mg/dL 04/28/2024 1:53 AM [facility] Anion Gap 7 5 - 15 mmol/L 04/28/2024 1:53 AM [facility] Glomerular Filtration Rate >60 >60 mL/min/1.7 3 m*2 04/28/2024 1:53 AM [facility] Comment:This calculation use s CKD-EPI 2020 equation; it has not been validated in women. Blood BLOOD SPECIMEN / Unknown Venipuncture / Unknown 04/28/2024 1:15 AM CHAIR SPRING ASSEMBLER 04/28/2024 1:32 AM CHAIR SPRING ASSEMBLER us Sheldon Sparks MD EC CHEMISTRY O RDERABLES Final Result Performing Organization Address City/State/[facility] Co de Phone Number [facility] [address] [place] [address] * HEMOGRAM/DIFFERENTIAL (04/28/2024 1:15 AM [facility]) WBC 5.5 4.0 - 11.0 10*3/uL 04/28/2024 1:45 AM [facility] RBC 4.27 3.80 - 5.20 10*6/uL 04/28/2024 1:45 AM [facility] HGB 12.9 12.0 - 16.0 g/dl 04/28/2024 1:45 AM [facility] HCT 38.6 35.0 - 47.0 % 04/28/2024 1:45 AM [facility] MCV 90.4 80 - 98 fL 04/28/2024 1:45 AM [facility] MCH 30.2 27.0 - 34.0 pg 04/28/2024 1:45 AM [facility] MCHC 33.4 32 - 36 g/dl 04/28/2024 1:45 AM [facility] PLT 204 150 - 420 10*3/uL 04/28/2024 1:45 AM [facility] Neutrophils Absolute 3.42 2.10 - 7.50 10*3/uL 04/28/2024 1:45 AM [facility] Lymphocytes Absolute 1.57 0.76 - 4.00 10*3/uL 04/28/2024 1:45 AM [facility] Monocytes Absolute 0.41 0.00 - 0.90 10*3/uL 04/28/2024 1:45 AM [facility] Eosinophils Absolute 0.09 0.04 - 0.54 10*3/uL 04/28/2024 1:45 AM [facility] Basophils Absolute 0.02 0.00 - 0.20 10*3/uL 04/28/2024 1:45 AM [facility] RDW-SD 43.4 36.5 - 46.3 fL 04/28/2024 1:45 AM [facility] RDW-CV 13.2 11.6 - 14.4 % 04/28/2024 1:45 AM [facility] Immature Granulocytes Absolute 0.01 0.00 - 0.10 10*3/uL 04/28/2024 1:45 AM [facility] Nucleated RBCs Absolute 0.00 0.00 - 0.00 10*3/uL 04/28/2024 1:45 AM [facility] Blood BLOOD SPECIMEN / Unknown Venipuncture / Unknown 04/28/2024 1:15 AM [facility] 04/28/2024 1:31 AM [facility] Sheldon Sparks MD EC HEMATOLOGY ORDERABLES Final Result [facility] [address] [phone] * (ABNORMAL) HCG, SERUM QUANTITATIVE (04/28/2024 1:15 AM [employer]) hCG, Serum Quantitative 8,370(H) <=25 mIU/mL 04/28/2024 2:12 AM [facility] Blood BLOOD SPECIMEN / Unknown Venipuncture / Unknown 04/28/2024 1:15 AM [employer] 04/28/2024 1:32 AM [employer] [facility] - 04/28/2024 2:12 AM [employer] Reference Ranges for Females: 0-1 weeks: 5-50 [...] MD EC CHEMISTRY O RDERABLES Final Result [facility] [address] [place], [place] [id number] [place] [address] * TYPE AND SCREEN (04/28/2024 12:12 AM [employer]) Antibody Screen NEGATIVE 04/28/2024 2:29 AM [employer] [facility] ABORH Type A POSITIVE 04/28/2024 2:29 AM [facility] Blood Bank Record New 04/28/2024 2:29 AM [facility] Comment:04/28/2024 Blood BLOOD SPECIMEN / Unknown Venipuncture / Unknown 04/28/2024 12:12 AM [employer] 04/28/2024 1:31 AM [employer] Sheldon Sparks MD EC BLOOD BANK ORDERABLES Final Result [facility] [address] [place] [address], [facility] [phone] from Last 3 Months Insurance [email or web address] Care Teams [employer] Relationship Specialty Start Date End Date Elsewhere, Pcp PCP - General 04/28/24
--- OUTSIDE RECORDS SUMMARY | 2024-04-28 10:17 | XMS_ITS | Encounter Summary ---
Author Organization [facility] Address [address] [address] Phone Care Team Providers Care Lead Database Administrator Name Role Phone Elsewhere, Pcp Primary Care [...] on filedocumented in this encounter Care Teams Lead Database Administrator Relationship Specialty Start Date End Date Elsewhere, Pcp PCP - General 04/28/24 documented as of this encounter
[2024-04-28] MEDS: MORPHINE 4 MG/ML INJ IVP (10:40)
[2024-04-28 10:45] LABS: Basophils Absolute Auto 0.01 K/uL (0.00-0.30); Basophils Percent Auto 0.1 % (0.0-3.0); Eosinophils Absolute Auto 0.02 K/uL (0.00-0.50); Eosinophils Percent Auto 0.2 % (0.0-7.0); Hematocrit 41.1 % (33.0-51.0); Hemoglobin* 13.4 gm/dL (12.0-16.0); Immature Granulocytes Abs Auto 0.01 K/uL (0.00-0.30); Immature Granulocytes Pct Auto 0.1 %; Lymphocytes Percent Auto 8.7 % (20-44); Mean Corpuscular HGB Conc 33 gm/dL (32-36); Mean Corpuscular Hemoglobin 30 pg (26-34); Mean Corpuscular Volume 93 fL (80-100); Monocytes Percent Auto 5.2 % (0.0-11.0); Neutrophils Percent Auto 85.7 % (42.0-72.0); Platelet Count* 183 K/uL (140-440); RDW Coefficient of Variation % 13.1 % (11.5-15.5); Red Blood Count 4.43 m/uL (4.00-5.20); White Blood Count* 8.15 K/uL (4.50-11.00)
[2024-04-28 10:50] LABS: Slide Review Reflex No
--- NOTE | 2024-04-28 11:19 | ED_ITS ---
HPI - General Adult General Date Seen: 04/28/24 Chief complaint: Vaginal Bleeding Stated complaint: Miscarrying Time Seen by Provider: 04/28/24 09:59 Source: patient Mode of arrival: ambulatory Limitations: no limitations History of Present Illness HPI narrative: patient is a 39-year-old female currently about 10 weeks who Is concerned she is miscarrying. she started having pelvic pain starting last night and went to another hospital for evaluation. Ultrasound was done at that time and she was told she was having a miscarriage. no intrauterine was seen. Patient is feeling better by the time she was discharged in pain all has almost completely resolved. Then again early this morning she started having severe pain again that she describes as a sharp 8/10 pain that gets up to a 10/10 pain. She passed another clot but has not had much more bleeding since then. She was supposed to follow-up with Ob /Gyne today but was told to come to the emergency department by triage. Denies fevers, chills, nausea, vomiting, weakness, numbness, diarrhea, constipation. No other concerns noted. States her pain is relatively localized. 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) ?Z86.19 - Personal history of other infectious and parasitic diseases (ICD- 10) Surgical History History of removal of skin mole ?Z98.890 - Other specified postprocedural states (ICD-10) ?Z87.2 - Personal history of diseases of the skin and subcutaneous tissue (ICD-10) Status post primary low transverse section (08/14/21) ?Z98.891 - History of uterine scar from previous surgery (ICD-10) History of colposcopy with cervical biopsy (2017) ?Z98.890 - Other specified postprocedural states (ICD-10) Family History Maternal Grandfather Coronary artery disease Paternal Grandmother Diabetes Paternal Grandfather Skin cancer Social History Narrative: (Deepak), 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 Smoking Status: Never smoker Do you use any of these nicotine containing products: None How often do you have a drink containing alcohol: never AUDIT-C Alcohol total score: 0 Non-prescribed substance use: denies use Exam Narrative: Exam Narrative: Const: Well-nourished, Well-developed, in Moderate distress Eyes: PERRL, no conjunctival injection, and symmetrical lids HENT: Atraumatic external nose and ears. Moist mucous membranes. Neck: Symmetric, trachea midline, No thyromegaly. CVS: RRR, No murmurs or gallops. Peripheral pulses 2+ and equal in all extremities RESP: Unlabored respiratory effort. Clear to auscultation bilaterally. GI: suprapubic tenderness,Nondistended, No rebound or guarding. MSK:Extremities w/o deformity, Normal Active ROM Skin: Warm, Dry. No rashes or lesions. Neuro: Normal Muscle tone, No focal neurological deficits. Psych: Awake, Alert, & Oriented x3. Appropriate mood and affect. Const: Vital Signs, click to edit/add: Vital Signs - 24 hr 04/28/24 09:57 Temperature 97.7 F Pulse Rate [Pulse Oximeter] 79 Respiratory Rate 18 Blood Pressure [Ri ght Upper Arm] 130/70 Pulse Oximetry 100 Oxygen Delivery Me thod Room Air Course Vital Signs Vital signs: Initial Vital Signs Temperature 97.7 F 04/28/24 09:57 Temperature Source Temporal Artery Scan 04/28/24 09:57 Pulse Rate 79 04/28/24 09:57 Pulse Rhythm Regular 04/28/24 09:57 Respiratory Rate 18 04/28/24 09:57 Blood Pressure 130/70 04/28/24 09:57 Blood Pressure Mean 90 04/28/24 09:57 Blood Pressure Position Sitting 04/28/24 09:57 Pulse Oximetry 100 04/28/24 09:57 Oxygen Delivery Method Room Air 04/28/24 09:57 Vital Signs Temperature 97.7 F 04/28/24 09:57 Pulse Rate 79 04/28/24 09:57 Respiratory Rate 18 04/28/24 09:57 Blood Pressure 130/70 04/28/24 09:57 Pulse Oximetry 100 04/28/24 09:57 Oxygen Delivery Method Room Air 04/28/24 09:57 Temperature 97.7 F 04/28/24 09:57 Pulse Rate 79 04/28/24 09:57 Respiratory Rate 18 04/28/24 09:57 Blood Pressure 130/70 04/28/24 09:57 Pulse Oximetry 100 04/28/24 09:57 Oxygen Delivery Method Room Air 04/28/24 09:57 Medications Administered Medications: Discontinued Medications Generic Name Dose Route Start Last Admin Trade Name Rachel PRN Reason Stop Dose Admin Morphine Sulfate 4 mg 04/28/24 10:15 04/28/24 10:40 Morphine 4 Mg/Ml Inj IVP 04/28/24 10:16 4 mg ONCE ONE Administration Medical Decision Making MDM Narrative Medical decision making narrative: patient is a 39-year-old female presenting for pelvic pain and concerns of miscarriage. we tried to get the reports and images from [facility] but were having a slow process in it so warm was going to have the patient bring up the radiologist interpretation on her my chart. She initially told me her ultrasound showed a intrauterine but then Dr. Montana, who was the [facility] was will see the patient today, called because she saw the patient's report And said that there was no intrauterine and a repeat ultrasound should be done. Also recommends ordering quantitative HCG and type and screen. I will order a CBC to make sure she is not becoming anemic. Was given morphine for pain. Morphine did help quite a bit with her pain. CBC shows no concerning abnormalities. Quantitative HCG was 5889. Was around 8000 this morning at [facility]. Repeat ultrasound shows no signs of an intrauterine and no clear signs of ectopic. Is and of unknown location. There is minimal bleeding. I did speak to Dr. Montana looking down to do a speculum exam and does states she did remove some clots and possible products of conception from the patient's cervix. This was sent as a path report. Patient is feeling well and will be discharged with close outpatient follow-up. Will provide oxycodone for pain management. She is agreeable to this plan. Lab Data Labs: Lab Results 04/28/24 04/28/24 Range/Units 10:35 11:35 WBC 8.15 (4.50-11.00) K/uL RBC 4.43 (4.00-5.20) m/uL Hgb 13.4 (12.0-16.0) gm/dL Hct 41.1 (33.0-51.0) % MCV 93 (80-100) fL MCH 30 (26-34) pg MCHC 33 (32-36) gm/dL RDW Coeff of Ebonie 13.1 (11.5-15.5) % Plt Count 183 (140-440) K/uL Neut % (Auto) 85.7 H (42.0-72.0) % Lymph % (Auto) 8.7 L (20-44) % Leslie % (Auto) 5.2 (0.0-11.0) % Eos % (Auto) 0.2 (0.0-7.0) % Baso % (Auto) 0.1 (0.0-3.0) % Neut # (Auto) 7.00 (1.7-7.0) K/uL Lymph # (Auto) 0.70 L (0.90-2.90) K/uL Leslie # (Auto) 0.40 (0.00-0.90) K/UL Eos # (Auto) 0.02 (0.00-0.50) K/uL Baso # (Auto) 0.01 (0.00-0.30) K/uL Abs Immat Gran (auto) 0.01 (0.00-0.30) K/uL Imm/Tot Granulo (auto) 0.1 % HCG, Quant 5889.30 mIU/mL Blood Type A Positive Antibody Screen NEGATIVE Imaging Data Pelvic ultrasound: Attestation: I have reviewed the pertinent imaging results. Radiologist's impression: No intrauterine gestational sac is detected. In the context of a positive test, differential possibilities include early , ectopic , and early loss. Recommend follow-up ultrasound and beta HCG. The endometrial stripe measures 4 millimeters at the fundus, however, the lower uterine segment and cervical canal are markedly expanded by heterogeneous echogenicity material without detectable internal vascular flow measuring up to 3.1 centimeters in thickness, most likely representing blood products. Findings are suspicious, but not diagnostic for early loss in progress and attention is recommended on follow-up imaging. Dictated by Vicente Gomez MD @ 04/28/2024 12:12:03 PM Discharge Plan Discharge Clinical Impression: Miscarriage Patient Disposition: Home, Self-Care Condition: Stable Instructions: Miscarriage (ED) Additional Instructions: we believe your having a miscarriage but is recommended you have close follow- up with OB In the next 48 hours. Return to emergency department for new or worsening symptoms. Take Tylenol and ibuprofen for pain but if that is not helping use the oxycodone. Prescriptions: New oxycodone 5 mg tablet 5 mg PO Q6H PRN (Reason: pain) Qty: 12 0RF Follow Up/Referrals: Mei Causey PA-C [Primary Care Provider] - Stand Alone Forms: Brandle Info Instructions
--- NOTE | 2024-04-28 13:12 | PM.GYNCN1 ---
INSULATION BLOWER - CN: HPI Data of Consult Date Seen: 04/28/24 Patient: [facility] Patient Primary Care Provider: Mei Causey PA-C Consult Narrative Narrative: Lucinda Rey is a 39 year old at 9w6d by LMP () seen in the ED for vaginal bleeding in early and acute pain. Patient was seen in the early hours overnight at an outside ED, where her HCG was 8370 and transvaginal ultrasound failed to demonstrate intrauterine . Outside ultrasound report reviewed, this shows a 9.7 x 5.9 x 5.3 cm uterus with a heterogenous and thickened endometrium. There were scattered areas of fluid within the endometrium, no gestational sac, pole or yolk sac seen. Adnexal survey was negative, aside from probable right corpus luteum cyst measuring 2.1 x 1.3 x 2.1 cm. No free pelvic fluid noted. Patient was added on to my schedule in clinic this morning for suspected miscarriage management. Prior to that visit, she noted acute pelvic and back pain rated as 10/10 in severity we have she felt like she was going to pass out and passed a large blood clot. As such, she presented to the emergency room. There, she was found to be hemodynamically stable and well-appearing. Hemoglobin was noted to be normal and her hCG was noted to down trend to 5889. Repeat ultrasound demonstrated a thin endometrial stripe at the uterine fundus measuring 4 mm however the lower urine segment and cervical canal or markedly expanded with heterogenous material measuring 3.1 cm in thickness. They noted this was negative for internal vascular flow. The adnexal survey was negative bilaterally, with minimal pelvic free fluid. By time of her arrival, she noted her pain was much improved. She describes this as midline pelvic pain, like severe uterine cramping previously. She notes her bleeding has also significantly decreased in volume. Denies dizziness/lightheadedness, chest pain, dyspnea, nausea/vomiting. I presented the bedside to review her findings in detail. I explained that technically this is a of unknown location, though I am highly suspicious for nonviable intrauterine and incomplete . Discussed this is suggested by her symptoms and down trending hCG. Patient has no risk factors for ectopic such as a prior ectopic, history of tubal surgery, ART to conceive this , contraception while she conceived this nor history of gonorrhea/chlamydia/PID. We discussed options for management including a speculum exam, where I do wonder if I would be able to identify tissue at the cervix and evacuate this. If not, discussed we could consider medical management with Cytotec or expectant management. Since this is a of unknown location, I would recommend close interval follow-up every hCG regardless. Patient wished to proceed with pelvic exam and evacuation of any retained tissue if this is seen, where she would desire surgical pathology for confirmation of IUP. cc:: CC: 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) ?Z86.19 - Personal history of other infectious and parasitic diseases (ICD-10) Surgical History History of removal of skin mole ?Z98.890 - Other specified postprocedural states (ICD-10) ?Z87.2 - Personal history of diseases of the skin and subcutaneous tissue (ICD-10) Status post primary low transverse section (08/14/21) ?Z98.891 - History of uterine scar from previous surgery (ICD-10) History of colposcopy with cervical biopsy (2016) ?Z98.890 - Other specified postprocedural states (ICD-10) Family History Maternal Grandfather Coronary artery disease Paternal Grandmother Diabetes Paternal Grandfather Skin cancer Social History Narrative: (Deepak), 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 Smoking Status: Never smoker Do you use any of these nicotine containing products: None How often do you have a drink containing alcohol: never AUDIT-C Alcohol total score: 0 Non-prescribed substance use: denies use Meds Home Medications and Allergies Allergies Allergy/AdvReac Type Severity Reaction Status Date / Time No Known Allergies Allergy Verified 04/28/24 10:03 INSULATION BLOWER - Exam Physical Exam: Vital signs: Temp Pulse Resp BP Pulse Ox O2 Del Method 97.7 F 79 18 130/70 100 Room Air 04/28/24 09:57 04/28/24 09:57 04/28/24 09:57 04/28/24 09:57 04/28/24 09:57 04/28/24 09:57 Narrative: Vital signs reviewed and are within normal limits. General: Alert and oriented, no acute distress Psych: Alert and oriented, in no acute distress. Intermittently tearful when discussing loss. Abdomen: Soft, nontender nondistended Pelvic: External genital exam within normal limits. Speculum inserted, where cervix was easily visualized. Immediately, I could see tissue at the cervix that was spontaneously expelled when speculum was opened. A period of bleeding followed, dark red in appearance which did pull the speculum. The products were grasped and sent for surgical pathology. Blood was evacuated from the speculum in vaginal canal. Cervix was visualized, about 1.5 cm dilated. No active bleeding noted. I used a ring forceps to gently see if I could grasp any further tissue in the endocervical canal, where nothing further could be expressed. Hemostasis was again assured. Speculum removed. INSULATION BLOWER - Results Labs Labs: Short CBC 04/28/24 Range/Units 10:35 WBC 8.15 (4.50-11.00) K/uL Hgb 13.4 (12.0-16.0) gm/dL Hct 41.1 (33.0-51.0) % Plt Count 183 (140-440) K/uL Assessment and Plan Assessment and plan (1) Vaginal bleeding: Status: Acute (2) , location unknown: Status: Acute Plan Lucinda is a 39-year-old seen at 9 weeks 6 days by LMP who presents with 1st trimester bleeding and pain. She presented to outside ED overnight, where her HCG was noted to be approximately 8300 with a transvaginal ultrasound that failed to demonstrate IUP. She presented to our ED today when she had passage of a large clot and severe pelvic/back pain. She was hemodynamically stable on arrival, with reassuring hemoglobin. Her HCG was noted to spontaneously decreased to 5889, consistent with nonviable . Pelvic ultrasound was repeated, where blood products versus possible products of conception were noted at the lower uterine segment and cervix. IUP could not be confirmed. Importantly, her adnexal survey was again negative with no apparent ectopic or adnexal mass. Minimal free pelvic fluid noted. Patient was well-appearing during her time in the ED. I visited with her, where explained that this is consistent with a nonviable . Technically, differential include incomplete of an intrauterine versus ectopic . Patient has no risk factors for ectopic. In addition, her physical exam and ultrasound are overall reassuring against this. Pelvic exam was completed, where there was spontaneous passage of likely products of conception from the cervix. Some brisk bleeding did follow, but this was easily evacuated with several large Q-tips and there was no active bleeding after passage of this tissue. Tissue was grasped and sent for surgical pathology, in order to confirm intrauterine products of conception. Strict bleeding and pain return precautions were reinforced with Lucinda. Recommend close interval hCG in 48 hours to ensure this continues to downtrend. If her surgical pathology returns prior to this result, and week initially exclude ectopic, we could defer her next HCG for 1 week. In general, I would recommend that we trended to 0 to ensure complete resolution of the . If she has severe pain, heavy bleeding, dizziness/lightheadedness, syncope, chest pain or dyspnea I would recommend she return to the emergency department. Emotional support provided. Patient is grieving appropriately and feels well supported by her partner, who was present for exam today. Blood type A positive. All questions answered. Return precautions reinforced.
== END 2024-04-28 13:32 | disposition home or self-care (01) ==
PROVIDERS: Emergency Provider Student in an Organized Health Care Education/Training Program; PCP Physician Assistant Medical
DX: O03.9 Complete or unspecified spontaneous abortion without complication (principal)
CPT/HCPCS: 36415; 76817; 84702; 85025; 86850; 86900; 86901; 96374; 99284; J2270

== ENCOUNTER 2024-04-30 10:35 | Outpatient (CLI) | payer OTHER, SELFPAY | END 2024-04-30 10:36 | disposition home or self-care (01) | LOC: NFLDREF 05-03 02:04 | PROVIDERS: PCP Physician Assistant Medical; Referring Provider Physician Assistant Medical; Visit Provider Obstetrics & Gynecology | DX: O20.0 Threatened abortion (principal) | CPT/HCPCS: 84702 ==

== ENCOUNTER 2024-05-07 16:47 | Outpatient (CLI) | payer OTHER, SELFPAY | END 2024-05-07 16:48 | disposition home or self-care (01) | LOC: NFLDREF 05-09 19:00 | PROVIDERS: PCP Physician Assistant Medical; Referring Provider Physician Assistant Medical; Visit Provider Obstetrics & Gynecology | DX: O03.9 Complete or unspecified spontaneous abortion without complication (principal) | CPT/HCPCS: 84702 ==

== ENCOUNTER 2024-05-14 07:22 | Outpatient (CLI) | payer OTHER, SELFPAY | END 2024-05-14 07:23 | disposition home or self-care (01) | LOC: NFLDREF 05-17 03:41 | PROVIDERS: PCP Physician Assistant Medical; Referring Provider Physician Assistant Medical; Visit Provider Obstetrics & Gynecology | DX: O36.80X0 Pregnancy with inconclusive fetal viability, not applicable or unspecified (principal) | CPT/HCPCS: 84702 ==

== ENCOUNTER 2024-06-01 10:38 | Outpatient (CLI) | payer OTHER, SELFPAY | END 2024-06-01 10:39 | disposition home or self-care (01) | LOC: NFLDREF 06-02 07:04 | PROVIDERS: PCP Physician Assistant Medical; Referring Provider Physician Assistant Medical; Visit Provider Obstetrics & Gynecology | DX: O36.80X0 Pregnancy with inconclusive fetal viability, not applicable or unspecified (principal) | CPT/HCPCS: 84702 ==